=== PATIENT | female | born 1955 | race Caucasian/White ===

== ENCOUNTER → 2017-12-05 | Day surgery (SDC) | payer OTHER ==
[~2017-12-05] MED LIST: NORCO 5-325 TA1 EACH PO; VITAMIN D2000 UNIT PO; ZANTAC 150MG T150 M1 PO
--- NOTE | 2017-12-05 11:10 | EKG ---
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
[2017-12-05 11:35] LABS: CREATININE 0.6 mg/dL (0.6-1.3); POTASSIUM 4.1 mmol/L (3.5-5.1)
[2017-12-05 11:42] LABS: HEMATOCRIT 41.1 % (37.0-47.0); HEMOGLOBIN 13.6 gm/dL (12.0-15.0); MCH 28.3 pg (26.0-34.0); MCHC 33.1 g/dL (28.0-37.0); MCV 85.4 fL (80.0-100.0); MPV 9.1 fl. (7.2-11.1); RBC 4.81 mil/uL (4.20-5.00); RDW-CV 14.4 % (10.5-14.5); WBC 4.2 thou/uL (4.0-11.0)
--- NOTE | 2017-12-14 10:40 | OP ---
[address] [address] OPERATIVE REPORT Name: FEDERICO LAL Room: [facility]#: [id number] Admission: 12/05/17 Attend Phys: Vishal Anders DO Discharge: Date of : 51 Report #: [id number] THIS REPORT FOR: //name// CC: Vishal France NP DATE OF SERVICE: 12/05/2017 REFERRING PHYSICIAN: Dr. Dwayne Leigh and Kimberley Naidu, nurse practitioner. PREOPERATIVE DIAGNOSES: Symptomatic cholelithiasis and morbid obesity with a body mass index of 50.57. POSTOPERATIVE DIAGNOSES: Symptomatic cholelithiasis and morbid obesity with a body mass index of 50.57. PROCEDURE: Laparoscopic cholecystectomy. SURGEON: Vishal Anders DO. RN PSYCHIATRIC: Yaw Simons, PGY2, resident. SECOND SNOWBLOWER MECHANIC: Dr. Flory Busch PGY1, resident. ANESTHESIA: General endotracheal. ESTIMATED BLOOD LOSS: Less than 20 mL. COMPLICATIONS: None. DESCRIPTION OF PROCEDURE: After obtaining proper consents and discussing risks and complications with the patient, she was taken to the operating room, laid on the supine position, administered general anesthesia. She was then prepped and draped in the usual fashion. Timeout was performed. We confirmed the appropriate patient and procedure. Preoperative antibiotics had been given. SCDs were in place. We then made a small supraumbilical skin incision. This was carried down through the skin into the subcutaneous tissue using electrocautery for hemostasis. Once the fascia was encountered, it was incised for approximately 1 cm along the midline. The peritoneum was then bluntly opened using a hemostat. A finger was placed inside the peritoneal cavity to assure there were no bhaskar-incisional adhesions. Next, 2-0 Vicryl sutures were placed in a hesioe-df-edlzm fashion to secure the 5-mm Susana trocar, which was then inserted. Once this was then inserted, insufflation was begun. Once insufflation was complete, full visual inspection [place] [address] OPERATIVE REPORT Name: FEDERICO LAL Room: [facility]#: [id number] Admission: 12/05/17 Attend Phys: Vishal Anders DO Discharge: Date of : 51 Report #: [id number] organs was performed. This revealed a very fatty appearing liver. The gallbladder was quite small and contracted. There is a large amount of omental fat making this procedure somewhat more difficult. The patient was then placed in steep reverse Trendelenburg position, rotated to the left. A 5-mm subxiphoid trocar was placed and two 5-mm trocars were placed in the right upper quadrant. We were then able to grasp and elevate the gallbladder. We could immediately identify the common bile duct. The gallbladder appeared to be folded over top of the common bile duct. I elevated the common bile duct and bluntly using a [place] dissector, I was able to take down some peritoneal attachments, which allowed us to then stretch the gallbladder and the cystic duct slightly. I was then able to dissect around the cystic duct and the cystic artery. These were both visualized coursing directly into the gallbladder. We could also visualize the cystic duct coursing into the common hepatic duct forming the common bile duct. I then placed 2 clips proximally on the cystic duct and 1 distally and then divided the cystic duct. The cystic artery was clipped proximally and distally and then divided between clips. I then removed the gallbladder from the liver bed assuring that we were well away from the common hepatic duct. This was done using both blunt dissection and electrocautery. Once the gallbladder was completely removed, the cystic duct and cystic artery stumps and liver bed were all checked for any leak or bleeding, there was none identified. The gallbladder was placed into an Endopouch and removed through the umbilical incision. After the insufflation had been stopped, all trocars were visualized as they were removed. The gallbladder was then removed through the umbilical incision. We then closed the umbilical fascia using the 2 previously placed 0 Vicryl sutures plus 2 additional 0 Vicryl suture. Skin incisions were all closed using 4-0 Monocryl subcuticular stitches. The wounds were injected with 0.5% Marcaine without epinephrine. The patient tolerated the procedure well, was transported to the recovery room in stable condition. <ELECTRONICALLY SIGNED> By: Vishal Anders DO 12/14/17 1040 1433 1500Adaanant Anders DO /nt
--- NOTE | 2017-12-15 10:06 | PATH ---
[address] [address] PATHOLOGY RPT PROCEDURE Name: DIANA ESPAÑA Room: [facility]#: [id number] Admission: 12/05/17 Date of : 51 Discharge: Report #: [id number] Path Case #: [id number] [facility] Accession Number: [id number] . 01 Material submitted: . GALLBLADDER . 01 Clinical history: . Calculus of gallbladder . 02 Diagnosis: Gallbladder: - Chronic cholecystitis and cholelithiasis. (JESSI:at;12/09/2017) QTA/12/10/2017 . 02 Electronically signed: . Micheal Leslie MD, Pathologist NPI- [id number] . 01 Gross description: . Received in formalin labeled "Diana España, gallbladder," is an intact gallbladder measuring 8.7 x 2.7 by 2.5 cm in greatest dimensions. The serosal surface is smooth to shaggy and pale tripp to dusky peterson-tripp in appearance, displaying two distinct areas of dark green discoloration measuring 0.3 and 0.5 cm in maximum dimension. Opening the specimen reveals a thinned, shaggy to trabeculated and pale green mucosa measuring less than 0.1 cm in thickness, and an average gallbladder wall thickness of 0.1 cm. Smooth, multifaceted and dark brown calculi are present that range from 0.8 to 1.9 cm in maximum dimension admixed with granular, green-brown sludge that is adherent to the mucosal surface. No lesions or polyps are noted grossly. Bee Rancher sections of the infundibulum, body and fundus are submitted in cassette A1, to include the dark green serosal surface discoloration. (DAC; 12/08/2017) XDC/XDC . 02 Pathologist provided ICD-10: K80.10 . 02 CPT . 326676 Specimen Comment: A courtesy copy of this report has been sent to Specimen Comment: [phone], . Specimen Comment: Report sent to / DR MONTES Performed at: [address], [place], [place] [id number] [place] [address] PATHOLOGY RPT PROCEDURE Name: BIJUWILLARDDIANA MINOR Jasiel [id number] Admission: 12/05/17 Date of : 51 Discharge: Report #: [id number] Path Case #: [id number] MD Ricky Trejo MD Phone: [phone] Performed at: [address] [place] [id number] MD Micheal Leslie MD Phone: [phone]
== END | disposition home or self-care (01) ==
LOC: M.SUR 08:33
PROVIDERS: Student in an Organized Health Care Education/Training Program
DX: K80.20 Calculus of gallbladder without cholecystitis without obstruction (principal); E66.01 Morbid (severe) obesity due to excess calories; Z68.43 Body mass index [BMI] 50.0-59.9, adult; Z79.899 Other long term (current) drug therapy; Z79.891 Long term (current) use of opiate analgesic

== ENCOUNTER → 2018-01-13 | Outpatient (CLI) | payer OTHER | LOC: M.RAD 09:21 | DX: Z12.31 Encounter for screening mammogram for malignant neoplasm of breast (principal) ==

== ENCOUNTER 2018-02-21 19:16 | Inpatient (IN) | payer OTHER, MEDICARE ==
[~2018-02-21] VITALS: Ht 157.5 cm; Wt 124.7 kg
--- NOTE | ~2018-02-21 | CON ---
[address] [address] CONSULTATION Name: FEDERICO LAL Room: [address] IN .R.#: [id number] Admission: 02/21/18 Attend Phys: Kapil Jack Discharge: Date of : 51 Report #: [id number] THIS REPORT FOR: //name// CC: Dwayne Yanes DATE OF SERVICE: 02/22/2018 REASON FOR CONSULTATION: 1. Upper abdominal pain ____ right upper quadrant pain with elevated LFTs and abnormal MRCP demonstrating probable choledocholithiasis. 2. Status post recent laparoscopic cholecystectomy for symptomatic cholelithiasis. 3. Morbid obesity with a BMI of over 50. RECOMMENDATIONS: 1. The patient has signs and symptoms to suggest choledocholithiasis with possible cholangitis. We will proceed with ERCP, biliary sphincterotomy, stone extraction and/or stent placement today. I have discussed the nature, risks, benefits, alternatives of the procedure with the patient as well as her and they are agreeable to the same. 2. Further recommendation will be made thereafter. HISTORY OF PRESENT ILLNESS: This is a very pleasant 63-year-old white female who underwent laparoscopic cholecystectomy for symptomatic cholelithiasis in mid November of this year without event. She was doing relatively well until the last several days where she been having problem with persistent epigastric and right upper quadrant pain, which is made worse postprandial. She has been taking some ranitidine ____ anything for acid reflux, but she is not having any problem with abdominal pain. She has tendency towards chronic constipation and states her last colonoscopy was done within the last year at [facility]. She presented to the Emergency Room with these complaints and was found to have elevated LFTs in particular bilirubin and an MRCP was performed, which revealed probable choledocholithiasis. She is now here for further evaluation and treatment. ALLERGIES: None. MEDICATIONS: At home include just a vitamin D and p.r.n. Pepto-Bismol. She also takes some ranitidine as well. PAST MEDICAL AND SURGICAL HISTORY: Remarkable for cholecystectomy, appendectomy, vitamin D deficiency. She had previous back surgeries, had right ankle surgery, skin cancer removed, problem with DJD and obesity. SOCIAL HISTORY: The patient , [place] [address] CONSULTATION Name: FEDERICO LAL Room: [address]#: [id number] Admission: 02/21/18 Attend Phys: Kapil Jack Discharge: Date of : 51 Report #: [id number] FAMILY HISTORY: Negative. PHYSICAL EXAMINATION: GENERAL: Pleasant 63-year-old white female who is miserable at this time. CARDIOPULMONARY EXAMINATION: Revealed regular rate and rhythm. LUNGS: Clear. ABDOMEN: Soft. She was tender in epigastrium and right upper quadrant. No rebound or guarding noted. LABORATORY DATA: Revealed a white count 7.3, hemoglobin 13.2, platelet count 316,000, MCV is 86.5 ____. Her sodium is 141, potassium 4.1, chloride 104, bicarbonate is 29, BUN is 9, creatinine 0.7, GFR is 84. Total bilirubin is 2.5, alkaline phosphatase 234, ____. Albumin is 3.1. CT scan of the abdomen and MRCP were reviewed. DISCUSSION: At the present time, the patient is miserable to have a choledocholithiasis. Proceed with an ERCP today and make further recommendations thereafter. By: [id number] Madrid DO /nt
[2018-02-21 19:23] VITALS: BP 153/83
[2018-02-21 19:50] LABS: ABSOLUTE BASOPHILS 0.1 thou/uL (0.0-0.2); ABSOLUTE EOSINOPHILS 0.1 thou/uL (0.0-0.7); ABSOLUTE LYMPHOCYTES 1.8 thou/uL (0.8-5.3); ABSOLUTE MONOCYTES 0.6 thou/uL (0.0-1.2); ABSOLUTE NEUTROPHILS 3.8 thou/uL (1.6-8.1); BASOPHILS 0.9 %; HEMATOCRIT 43.2 % (37.0-47.0); HEMOGLOBIN 14.2 gm/dL (12.0-15.0); LYMPHOCYTES 28.9 %; MCH 28.3 pg (26.0-34.0); MCV 85.9 fL (80.0-100.0); MONOCYTES 8.9 %; MPV 8.9 fl. (7.2-11.1); NUCLEATED RBCS 0 /100WBC; PLATELET COUNT* 345 thou/uL (150-400); POLYS 60.3 %; RBC 5.03 mil/uL (4.20-5.00); RDW-CV 15.6 % (10.5-14.5); WBC 6.3 thou/uL (4.0-11.0)
[2018-02-21 19:59] LABS: ANION GAP 7 mmol/L (7-16); BUN 10 mg/dL (7-18); CALCIUM 9.5 mg/dL (8.5-10.1); CHLORIDE 102 mmol/L (98-107); CO2 30 mmol/L (21-32); CREATININE 0.8 mg/dL (0.6-1.3); GLUCOSE 137 mg/dL (70-99); POTASSIUM 4.1 mmol/L (3.5-5.1); SODIUM 139 mmol/L (136-145)
[2018-02-21 20:05] LABS: ALBUMIN 3.4 g/dL (3.4-5.0); ALKALINE PHOSPHATASE 253 U/L (46-116); LIPASE 149 U/L (73-393); SGOT 354 U/L (15-37); SGPT 818 U/L (30-65); TOTAL BILIRUBIN 2.4 mg/dL (<0.1-1.0); TOTAL PROTEIN 7.4 g/dL (6.4-8.2); TROPONIN-I LEVEL <0.06 ng/mL (<0.06)
[2018-02-21 22:45] VITALS: BP 115/70
[2018-02-21 22:57] VITALS: BP 135/77
[2018-02-21 23:56] LABS: URINE BLOOD TRACE (Negative); URINE CLARITY CLEAR; URINE COLOR DARK YELLOW; URINE GLUCOSE-RANDOM NEGATIVE (Negative); URINE KETONES TRACE (Negative); URINE LEUKOCYTES-REFLEX NEGATIVE (Negative); URINE NITRITE-REFLEX NEGATIVE (Negative); URINE PROTEIN NEGATIVE (Negative); URINE SPECIFIC GRAVITY 1.015 (1.005-1.030)
[2018-02-21 23:57] LABS: URINE BILIRUBIN 2+ (Negative)
[2018-02-22 00:10] LABS: ICTOTEST (BILI CONFIRMATORY) Negative (Negative)
[2018-02-22 04:24] LABS: HEMOGLOBIN 13.2 gm/dL (12.0-15.0); MCH 28.4 pg (26.0-34.0); MCHC 32.9 g/dL (28.0-37.0); MCV 86.5 fL (80.0-100.0); MPV 9.6 fl. (7.2-11.1); RBC 4.63 mil/uL (4.20-5.00); RDW-CV 15.2 % (10.5-14.5); WBC 7.3 thou/uL (4.0-11.0)
[2018-02-22 04:54] LABS: ALBUMIN 3.1 g/dL (3.4-5.0); CREATININE 0.7 mg/dL (0.6-1.3); MAGNESIUM 2.1 mg/dL (1.8-2.4); POTASSIUM 4.1 mmol/L (3.5-5.1); TOTAL BILIRUBIN 2.5 mg/dL (<0.1-1.0); TOTAL PROTEIN 6.7 g/dL (6.4-8.2)
[2018-02-22 08:00] VITALS: BP 144/70
[2018-02-22 12:13] LABS: DIRECT BILIRUBIN 1.8 mg/dL (<0.1-0.3); TOTAL BILIRUBIN 2.9 mg/dL (<0.1-1.0)
--- NOTE | 2018-02-22 15:39 | EKG ---
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
[2018-02-22 16:00] VITALS: BP 144/80
[2018-02-22 20:20] VITALS: BP 147/77
[2018-02-23] VITALS: BP 146/79
[2018-02-23 04:55] LABS: HEMATOCRIT 37.6 % (37.0-47.0); HEMOGLOBIN 12.2 gm/dL (12.0-15.0); MCHC 32.5 g/dL (28.0-37.0); MCV 86.3 fL (80.0-100.0); MPV 9.7 fl. (7.2-11.1); RBC 4.36 mil/uL (4.20-5.00); RDW-CV 15.7 % (10.5-14.5); WBC 8.9 thou/uL (4.0-11.0)
[2018-02-23 05:09] LABS: ALBUMIN 2.8 g/dL (3.4-5.0); CALCIUM 8.7 mg/dL (8.5-10.1); CREATININE 0.6 mg/dL (0.6-1.3); TOTAL BILIRUBIN 2.3 mg/dL (<0.1-1.0); TOTAL PROTEIN 5.8 g/dL (6.4-8.2)
[2018-02-23 07:40] VITALS: BP 137/65
[2018-02-23] MEDS ORDERED: PHENERGAN 25 MG25 M1 PO (10:06)
[2018-02-23 14:08] LABS: HEPATITIS B SURFACE AG Negative (Negative)
[2018-02-23 16:00] VITALS: BP 139/64
[2018-02-23 20:20] VITALS: BP 117/66
[2018-02-24 03:45] LABS: ABSOLUTE BASOPHILS 0.1 thou/uL (0.0-0.2); ABSOLUTE EOSINOPHILS 0.1 thou/uL (0.0-0.7); ABSOLUTE LYMPHOCYTES 2.4 thou/uL (0.8-5.3); ABSOLUTE MONOCYTES 0.7 thou/uL (0.0-1.2); ABSOLUTE NEUTROPHILS 3.8 thou/uL (1.6-8.1); BASOPHILS 0.7 %; EOSINOPHILS 0.8 %; HEMATOCRIT 38.1 % (37.0-47.0); HEMOGLOBIN 12.5 gm/dL (12.0-15.0); LYMPHOCYTES 34.5 %; MCH 28.4 pg (26.0-34.0); MCHC 32.9 g/dL (28.0-37.0); MCV 86.4 fL (80.0-100.0); MPV 9.4 fl. (7.2-11.1); NUCLEATED RBCS 0 /100WBC; PLATELET COUNT* 297 thou/uL (150-400); RBC 4.41 mil/uL (4.20-5.00); RDW-CV 15.6 % (10.5-14.5)
[2018-02-24 04:20] LABS: ALBUMIN 2.7 g/dL (3.4-5.0); CALCIUM 8.4 mg/dL (8.5-10.1); CREATININE 0.7 mg/dL (0.6-1.3); POTASSIUM 3.9 mmol/L (3.5-5.1); TOTAL PROTEIN 6.1 g/dL (6.4-8.2)
[2018-02-24 07:50] VITALS: BP 110/59
[2018-02-24 11:59] VITALS: BP 110/59
[2018-02-24] MEDS ORDERED: NORCO 5-325 TA1 EACH PO (12:07)
[2018-02-24 14:11] LABS: EBV EA IgG 41.9 U/mL (0.0-8.9); EBV VCA IgM 57.2 U/mL (0.0-35.9)
== END 2018-02-24 13:15 | disposition home or self-care (01) | DRG 445 ==
LOC: M.ERS 19:16 → M.3W 21:48 → M.TBA-ER 21:48 → M.3W 22:49
PROVIDERS: Internal Medicine; Internal Medicine Gastroenterology; Physician Assistant; ADMIT Internal Medicine
PROC: 0FC98ZZ Extirpation of Matter from Common Bile Duct, Via Natural or Artificial Opening Endoscopic (ICD-10-PCS; principal; 2018-02-22)
DX: K80.51 Calculus of bile duct without cholangitis or cholecystitis with obstruction (principal); Z68.43 Body mass index [BMI] 50.0-59.9, adult; E44.1 Mild protein-calorie malnutrition; K21.9 Gastro-esophageal reflux disease without esophagitis; M47.9 Spondylosis, unspecified; E80.6 Other disorders of bilirubin metabolism; E66.01 Morbid (severe) obesity due to excess calories; Z90.49 Acquired absence of other specified parts of digestive tract; Z79.899 Other long term (current) drug therapy

== ENCOUNTER → 2018-03-26 | Outpatient (CLI) | payer OTHER, MEDICARE ==
[~2018-03-26] MED LIST changes: +PHENERGAN 25 MG25 M1 PO
[2018-03-26 10:43] LABS: HEMATOCRIT 42.7 % (37.0-47.0); HEMOGLOBIN 14.4 gm/dL (12.0-15.0); MCH 28.4 pg (26.0-34.0); MCHC 33.6 g/dL (28.0-37.0); MCV 84.4 fL (80.0-100.0); MPV 8.8 fl. (7.2-11.1); RBC 5.06 mil/uL (4.20-5.00); RDW-CV 14.8 % (10.5-14.5); WBC 4.4 thou/uL (4.0-11.0)
[2018-03-26 11:02] LABS: ALBUMIN 3.3 g/dL (3.4-5.0); CALCIUM 8.8 mg/dL (8.5-10.1); CREATININE 0.7 mg/dL (0.6-1.3); POTASSIUM 4.1 mmol/L (3.5-5.1); TOTAL BILIRUBIN 0.7 mg/dL (<0.1-1.0); TOTAL PROTEIN 7.1 g/dL (6.4-8.2)
== END ==
LOC: M.LAB 10:20
PROVIDERS: Internal Medicine Gastroenterology
DX: B17.9 Acute viral hepatitis, unspecified (principal)